=== PATIENT | female | born 1975 | race African-American/Black ===

== ENCOUNTER 2022-05-03 22:18 | Inpatient (IN) | payer MEDICAID, OTHER ==
[~2022-05-03] VITALS: Ht 175.3 cm; Wt 78.5 kg
[2022-05-03] MEDS ORDERED: ONDANSETRON HCL 4MG/2ML INJ IV STA (23:10)
[2022-05-03] MEDS ORDERED: SODIUM CHLORIDE 0.9% 1,000 ML IV ONE (23:15)
[2022-05-03 23:47] LABS: BASOPHILS % 0.3 % (0.0-2.0); EOSINOPHILS % 0.8 % (0.0-5.0); HEMATOCRIT. 37.8 % (36.0-48.0); LYMPHOCYTES % 34.7 % (20.0-50.0); MEAN CORPUSCULAR HEMOGLOBIN 29.8 pg (28.0-32.0); MEAN CORPUSCULAR VOLUME 93.9 fL (81.0-99.0); MEAN PLATELET VOLUME 9.6 fl (7.4-10.4); MONOCYTES % 9.1 % (2.0-8.0); NEUTROPHILS % 55.1 % (40.0-76.0); PLATELET 211 x1000/uL (130-400); RED BLOOD CELL COUNT 4.02 mill/uL (4.2-5.4); RED CELL DISTRIBUTION WIDTH 14.6 % (11.6-14.6)
[2022-05-03 23:52] LABS: CHLORIDE 99 mEq/L (98-107)
[2022-05-04 00:03] LABS: BETA HYDROXYBUTYRATE 0.2 mMol/L (0.0-0.3); ETHANOL BLOOD < 10 mg/dL
[2022-05-04 00:29] LABS: BG BASE EXCESS -0.7 mmol/L (-2.0-2.0); BG CARBOXYHEMOGLOBIN 0.4 % (0.5-1.5); BG DEOXYHEMOGLOBIN 4.3 % (0.0-5.0); BG FRACTION INSPIRED OXYGEN 21; BG HCO3 ACT 25.5 mmol/L (22.0-26.0); BG METHEMOGLOBIN 0.3 % (0.0-1.5); BG OXYGEN SATURATION 95.7 % (92.0-98.5); BG PCO2 48.3 mmHg (35.0-45.0); BG PO2 87.3 mmHg (75.0-100.0); BG SAMPLE SITE RIGHT RADIAL; BG TOTAL HEMOGLOBIN 12.6 g/dL (12.0-18.0); BG VENT MODE ROOM AIR
[2022-05-04] MEDS ORDERED: ONDANSETRON HCL 4MG/2ML INJ IV NR (01:15)
[2022-05-04] MEDS ORDERED: INSULIN REGULAR (HUMULIN R) 300UNITS/3ML VIAL SUBCUT NR (01:15)
[2022-05-04] MEDS ORDERED: HYDRALAZINE 20MG/ML VIAL IV ONE (01:45)
[2022-05-04] MEDS ORDERED: SODIUM CHLORIDE 0.9% 1,000 ML IV NR (03:45)
[2022-05-04] MEDS ORDERED: INSULIN REGULAR (HUMULIN R) 300UNITS/3ML VIAL IV NR (03:45)
[2022-05-04] MEDS ORDERED: INSULIN GLARGINE 100 UNITS/ML SUBCUT NR (03:45)
[2022-05-04] MEDS: HYDRALAZINE 20MG/ML VIAL IV PRN ×3 (04:53→15:37)
[2022-05-04] MEDS ORDERED: DEXTROSE 50% WATER 50ML SYRINGE IV PRN ×2 (07:15→14:45)
[2022-05-04] MEDS: BLOOD SUGAR DIAGNOSTIC STRIP TEST SCH ×5 (08:23→21:00)
[2022-05-04] MEDS: INSULIN LISPRO 100 UNITS/ML SUBCUT SCH ×4 (08:45→21:32)
[2022-05-04] MEDS ORDERED: MAGNESIUM/ALUMINUM HYDROXIDE/SIMETHICONE 30ML UDC PO PRN (14:45)
[2022-05-04] MEDS ORDERED: DIPHENHYDRAMINE 50MG/ML VIAL IV PRN (14:45)
[2022-05-04] MEDS ORDERED: ONDANSETRON HCL 4MG/2ML INJ IV PRN (14:45)
[2022-05-04] MEDS ORDERED: ACETAMINOPHEN 325MG TABLET PO PRN ×2 (14:45)
[2022-05-04] MEDS ORDERED: GLIP5POW MC (14:48)
[2022-05-04] MEDS ORDERED: METF-416 MT (14:48)
[2022-05-04] MEDS ORDERED: PREG50CA PO (14:48)
[2022-05-04] MEDS ORDERED: AMLO2.5T45 PO (14:48)
[2022-05-04] MEDS ORDERED: INSU100I28 SQ (14:48)
[2022-05-04] MEDS ORDERED: HYDR25TA PO (14:48)
[2022-05-04 14:51] VITALS: BP 170/92
[2022-05-04] MEDS ORDERED: INFLUENZA VACCINE 05/PF 0.5 ML SYRINGE IM ONE (15:00)
[2022-05-04] MEDS ORDERED: PNEUMOCOCCAL 23-VAL P-SAC VAC 0.5 ML IM ONE (15:00)
[2022-05-04] MEDS: SODIUM CHLORIDE 0.9% 1,000 ML IV SCH ×2 (15:30→22:55)
[2022-05-04 15:43] VITALS: BP 145/79
[2022-05-04] MEDS: METFORMIN HCL 500MG TABLET PO SCH (16:50)
[2022-05-04 19:17] LABS: CLARITY URINE CLOUDY (CLEAR); COLOR URINE YELLOW (YELLOW); KETONES URINE TRACE (NEGATIVE); LEUKOCYTE ESTERASE URINE 3+ (NEGATIVE); NITRITE URINE POSITIVE (NEGATIVE); OCCULT BLOOD URINE NEGATIVE (NEGATIVE); PH URINE 6.5 (4.5-8.0); PROTEIN URINE TRACE (NEGATIVE); SPECIFIC GRAVITY URINE 1.018 (1.005-1.030)
[2022-05-04 19:43] LABS: *AMPHETAMINES SCREEN URINE NEGATIVE (NEGATIVE); *BARBITURATES SCREEN URINE NEGATIVE (NEGATIVE); *BENZODIAZEPINES SCREEN URINE NEGATIVE (NEGATIVE); *COCAINE SCREEN URINE NEGATIVE (NEGATIVE); METHADONE URINE SCREEN NEGATIVE (NEGATIVE); OPIATES URINE SCREEN NEGATIVE (NEGATIVE); PHENCYCLIDINE URINE SCREEN NEGATIVE (NEGATIVE)
[2022-05-04 19:45] LABS: CANNABINOID URINE SCREEN PRESUMTIVE POSITIVE (NEGATIVE)
[2022-05-04 20:00] VITALS: BP 137/81
[2022-05-04] MEDS ORDERED: INSULIN GLARGINE 100 UNITS/ML SUBCUT SCH (22:00)
[2022-05-05] VITALS: BP 106/63
[2022-05-05 04:00] VITALS: BP 122/71
[2022-05-05] MEDS: SODIUM CHLORIDE 0.9% 1,000 ML IV SCH (06:23)
[2022-05-05] MEDS ORDERED: GLIPIZIDE 5MG TABLET PO SCH (06:30)
[2022-05-05] MEDS ORDERED: INFLUENZA VACCINE 05/PF 0.5 ML SYRINGE IM ONE (06:30)
[2022-05-05] MEDS ORDERED: PNEUMOCOCCAL 23-VAL P-SAC VAC 0.5 ML IM ONE (06:30)
[2022-05-05] MEDS: INSULIN LISPRO 100 UNITS/ML SUBCUT SCH ×2 (06:34→11:48)
[2022-05-05] MEDS: BLOOD SUGAR DIAGNOSTIC STRIP TEST SCH ×2 (06:34→11:35)
[2022-05-05 08:00] VITALS: BP 156/85
[2022-05-05] MEDS: METFORMIN HCL 500MG TABLET PO SCH (09:01)
[2022-05-05 12:00] VITALS: BP 135/70
[2022-05-05] MEDS ORDERED: LEVOFLOXACIN 500MG TABLET PO NR (13:30)
== END 2022-05-05 14:31 | disposition home or self-care (01) | DRG 420 ==
LOC: ER 22:18 → MICUSO 05-04 02:59 → EDBEDREQTM 05-04 03:11 → EDBEDREQ 05-04 03:11 → 7EST 05-04 15:16
PROVIDERS: ADMIT Internal Medicine; ATTEND Internal Medicine
DX: E11.00 Type 2 diabetes mellitus with hyperosmolarity without nonketotic hyperglycemic-hyperosmolar coma (NKHHC) (principal); G93.40 Encephalopathy, unspecified; E78.00 Pure hypercholesterolemia, unspecified; N39.0 Urinary tract infection, site not specified; E86.0 Dehydration; I10 Essential (primary) hypertension; Z90.710 Acquired absence of both cervix and uterus; Z83.3 Family history of diabetes mellitus; Z81.8 Family history of other mental and behavioral disorders
CPT/HCPCS: 36415; 36600; 71045; 80053; 80305; 80320; 81003; 82010; 82375; 82805; 82962; 83036; 83605; 84484; 85025; 90686; 90732; 93005; 99291; J0360; J1815; J2405; J7030; G0480